=== PATIENT | male | born 1980 | race Caucasian/White ===

== ENCOUNTER 2025-04-24 06:14 | Day surgery (SDC) | payer BC, SELFPAY | END 2025-04-24 14:46 | disposition home or self-care (01) | LOC: GI 06:14 | PROVIDERS: ATTENDING PHYSICIAN Internal Medicine Gastroenterology | DX: Z12.11 Encounter for screening for malignant neoplasm of colon (principal); K64.8 Other hemorrhoids; K57.30 Diverticulosis of large intestine without perforation or abscess without bleeding; D12.0 Benign neoplasm of cecum; Z83.719 Family history of colon polyps, unspecified | CPT/HCPCS: 45385; 88305 ==

== ENCOUNTER → 2025-06-03 16:05 | Outpatient (REF) | payer BC, SELFPAY | LOC: MRI 3T 16:05 | PROVIDERS: ATTENDING PHYSICIAN Nurse Practitioner Family; FAMILY PHYSICIAN Family Medicine | DX: E22.9 Hyperfunction of pituitary gland, unspecified (principal) | CPT/HCPCS: 70553; A9575 ==